=== PATIENT | male | born 1940 | race Caucasian/White ===

== ENCOUNTER 2018-03-30 07:58 | Day surgery (SDC) | payer BC, MEDICARE, OTHER ==
[2018-03-30] VITALS (7 sets, daily range): BP systolic 114–140; BP diastolic 80–90
[~2018-03-30] VITALS: Ht 180.3 cm; Wt 73.0 kg
[~2018-03-30 07:58] MED LIST: ACYC800T PO; ALFU10TA6 PO; ALPR.5T PO; ASP81TEC PO; AVOD0.5CAP PO; BIMA2.5D4 OS; DOXY50CA2 PO; MULT1CAP27 PO; NF-ESOM40C PO; OMEG-12 PO; TROSP20C PO; VITA1CAP59 PO; [UNRECOGNIZED DRUG - OTHER]; iron; osteo matrix
--- OUTSIDE RECORDS SUMMARY | 2018-03-30 08:28 | XMS REPORT | Continuity of Care Document ---
Author Author [facility] Organization [facility] Address Unknown Phone Unavailable Allergies Active Description Code Type Severity Reaction Onset Reported/Identified Relationship to Patient Clinical Status Yes Sulfa (Sulfonamide Antibiotics) [id number] Drug Allergy Unknown N/A 2014 Medications There is no data. Problems Date Dx Coded Attending Type Code Diagnosis Diagnosed By 08/02/2012 Ot 780.4 DIZZINESS AND GIDDINESS 08/02/2012 Ot 785.1 PALPITATIONS 05/23/2014 Ot 216.5 05/23/2014 Ot 216.6 05/23/2014 Ot 780.79 05/23/2014 Ot 789.03 05/23/2014 Ot V10.82 05/23/2014 Ot V67.09 05/23/2014 Ot 573.8 05/23/2014 Ot V10.82 05/23/2014 Ot 518.89 05/23/2014 Ot V10.82 05/23/2014 Ot V58.66 05/23/2014 Ot V58.69 05/23/2014 Ot V67.09 05/23/2014 Ot 719.45 05/23/2014 Ot 268.9 05/23/2014 Ot 285.9 05/23/2014 Ot 600.00 05/23/2014 Ot V10.82 05/23/2014 Ot V58.66 05/23/2014 Ot V58.69 05/23/2014 Ot V67.09 05/23/2014 Ot 368.9 05/23/2014 Ot 437.1 05/23/2014 Ot V10.82 05/23/2014 Ot V58.66 05/23/2014 Ot V58.69 05/23/2014 Ot V67.09 05/23/2014 Ot 397.0 05/23/2014 Ot 424.0 05/23/2014 Ot 780.4 05/23/2014 Ot 785.1 05/23/2014 Ot 780.4 05/23/2014 Ot 785.1 05/23/2014 RONI MOISE, QUINN-GIUSEPPE Ot V10.82 05/23/2014 RONI MOISE, CHEYENNE-GIUSEPPE Ot V58.66 05/23/2014 RONI MOISE, CHEYENNE-GIUSEPPE Ot V58.69 05/23/2014 RONI MOISE, CHEYENNE-GIUSEPPE Ot V67.09 05/23/2014 ROB MOISE, LIA R Ot 715.95 05/23/2014 ROB MOISE, LIA R Ot 715.33 05/23/2014 ROB MOISE, LIA R Ot 721.3 05/23/2014 RONI MOISE, CHEYENNE-GIUSEPPE Ot V10.82 05/23/2014 RONI MOISE, CHEYENNE-GIUSEPPE Ot V58.66 05/23/2014 RONI MOISE, CHEYENNE-GIUSEPPE Ot V58.69 05/23/2014 RONI MOISE, DEEPIKA Ot V67.09 05/23/2014 RONI MOISE, CHEYENNE-GIUSEPPE Ot V10.82 05/23/2014 RONI MOISE, CHEYENNE-GIUSEPPE Ot V67.09 05/26/2014 MK MOISE, GIOVANNI E Ot 724.02 05/26/2014 MK MOISE, GIOVANNI E Ot 724.2 05/26/2014 MK MOISE, GIOVANNI E Ot 724.4 05/26/2014 MK MOISE, GIOVANNI E Ot 728.85 06/01/2014 ROB MOISE, LIA R Ot 715.33 06/01/2014 ROB MOISE, LIA R Ot 721.3 07/13/2014 ROB MOISE, LIA R Ot 715.95 07/21/2014 RONI MOISE, SOLAGIUSEPPE Ot V10.82 HX-MALIG SKIN MELANOMA 07/21/2014 RONI MOISE, CHEYENNEMOODY Ot V67.09 SURGERY FOLLOW-UP, OTHER SURGERY 02/02/2015 ROB MOISE, LIA R Ot 719.40 04/10/2015 GRACIE MOISE, LEONELA Olosn Ot E78.5 04/10/2015 GRACIE MOISE, LEONELA Olson Ot I47.1 04/10/2015 GRACIE MOISE, LEONELA Olson Ot I49.49 04/10/2015 GRACIE MOISE, LEONELA Olson Ot I65.29 05/04/2015 RONI MOISE, SOLAGIUSEPPE Ot V10.82 05/04/2015 RONI MOISE, QUINNMOODY Ot V67.09 05/10/2015 Ot 780.4 05/10/2015 Ot 785.1 05/10/2015 RONI MOISE, DEEPIKA Ot V10.82 05/10/2015 RONI MOISE, DEEPIKA Ot V67.09 06/22/2015 RONI MOISE, DEEPIKA Ot V10.82 06/22/2015 RONI MOISE, DEEPIKA Ot V67.09 06/28/2015 GRACIE MOISE, LEONELA J Ot E78.5 06/28/2015 GRACIE OMISE, LEONELA J Ot I47.1 06/28/2015 GRACIE MOISE, BASHAR J Ot I49.49 06/28/2015 GRACIE MOISE, BASHAR J Ot E78.5 06/28/2015 GRACIE MOISE, BASHAR J Ot I47.1 06/28/2015 GRACIE MOISE, LEONELA J Ot I47.2 07/11/2015 RONI MOISE, DEEPIKA Ot V10.82 07/11/2015 RONI MOSIE, DEEPIKA Ot V67.09 07/11/2015 RONI MOISE, DEEPIKA Ot Z08 07/11/2015 RONI MOISE, DEEPIKA Ot Z85.820 08/08/2015 RONI MOISE, DEEPIKA Ot Z08 ENCNTR FOR FOLLOW-UP EXAM AFTER TRTMT FO 08/08/2015 RONI MOISE, DEEPIKA Ot Z85.820 PERSONAL HISTORY OF MALIGNANT MELANOMA O 01/09/2016 RONI MOISE, DEEPIKA Ot V10.82 HX-MALIG SKIN MELANOMA 01/09/2016 RONI MOISE, DEEPIKA Ot V67.09 SURGERY FOLLOW-UP, OTHER SURGERY 01/09/2016 RONI MOISE, DEEPIKA Ot Z08 ENCNTR FOR FOLLOW-UP EXAM AFTER TRTMT FO 01/09/2016 RONI MOISE, DEEPIKA Ot Z85.820 PERSONAL HISTORY OF MALIGNANT MELANOMA O 02/07/2016 RONI MOISE, DEEPIKA Ot V10.82 HX-MALIG SKIN MELANOMA 02/07/2016 RONI MOISE, DEEPIKA Ot V67.09 SURGERY FOLLOW-UP, OTHER SURGERY 02/07/2016 RONI MOISE, DEEPIKA Ot Z08 ENCNTR FOR FOLLOW-UP EXAM AFTER TRTMT FO 02/07/2016 DEEPIKA TAMAYO MD Ot Z85.820 PERSONAL HISTORY OF MALIGNANT MELANOMA O 02/19/2016 RONI MOISE, DEEPIKA Ot Z08 ENCNTR FOR FOLLOW-UP EXAM AFTER TRTMT FO 02/19/2016 DEEPIKA TAMAYO MD Ot Z85.820 PERSONAL HISTORY OF MALIGNANT MELANOMA O 02/29/2016 DEEPIKA TAMAYO MD Ot Z08 ENCNTR FOR FOLLOW-UP EXAM AFTER TRTMT FO 02/29/2016 DEEPIKA TAMAYO MD Ot Z85.820 PERSONAL HISTORY OF MALIGNANT MELANOMA O 03/14/2016 DEEPIKA TAMAYO MD Ot Z08 ENCNTR FOR FOLLOW-UP EXAM AFTER TRTMT FO 03/14/2016 DEEPIKA TAMAYO MD Ot Z85.820 PERSONAL HISTORY OF MALIGNANT MELANOMA O 04/05/2016 Ot 719.45 JOINT PAIN- PELVIS 04/05/2016 Ot 268.9 VITAMIN D DEFICIENCY NOS 04/05/2016 Ot 285.9 ANEMIA NOS 04/05/2016 Ot 600.00 HYPERTROPHY (BENIGN) OF PROSTATE W/O URI 04/05/2016 Ot V10.82 HX-MALIG SKIN MELANOMA 04/05/2016 Ot V58.66 LONG-TERM ( CURRENT) USE OF ASPIRIN 04/05/2016 Ot V58.69 OTH MED,LT, CURRENT USE 04/05/2016 Ot V67.09 SURGERY FOLLOW-UP, OTHER SURGERY 04/05/2016 Ot 368.9 VISUAL DISTURBANCE NOS 04/05/2016 Ot 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 04/05/2016 Ot V10.82 HX-MALIG SKIN MELANOMA 04/05/2016 Ot V58.66 LONG-TERM ( CURRENT) USE OF ASPIRIN 04/05/2016 Ot V58.69 OTH MED,LT, CURRENT USE 04/05/2016 Ot V67.09 SURGERY FOLLOW-UP, OTHER SURGERY 04/05/2016 Ot 397.0 TRICUSPID VALVE DISEASE 04/05/2016 Ot 424.0 MITRAL VALVE DISORDER 04/05/2016 Ot 780.4 DIZZINESS AND GIDDINESS 04/05/2016 Ot 785.1 PALPITATIONS 04/05/2016 Ot 780.4 DIZZINESS AND GIDDINESS 04/05/2016 Ot 785.1 PALPITATIONS 04/05/2016 DEEPIKA TAMAYO MD Ot V10.82 HX-MALIG SKIN MELANOMA 04/05/2016 DEEPIKA TAMAYO MD Ot V58.66 LONG-TERM (CURRENT) USE OF ASPIRIN 04/05/2016 DEEPIKA TAMAYO MD Ot V58.69 OTH MED,LT,CURRENT USE 04/05/2016 DEEPIKA TAMAYO MD Ot V67.09 SURGERY FOLLOW-UP, OTHER SURGERY 04/05/2016 RBO MOISE, LIA R Ot 715.95 OSTEOARTHROS NOS-PELVIS 04/05/2016 ROB MOISE, LIA R Ot 715.33 LOC OSTEOART NOS-FOREARM 04/05/2016 ROB MOISE, LIA R Ot 721.3 LUMBOSACRAL SPONDYLOSIS 04/05/2016 DEEPIKA TAMAYO MD Ot V10.82 HX-MALIG SKIN MELANOMA 04/05/2016 DEEPIKA TAMAYO MD Ot V58.66 LONG-TERM (CURRENT) USE OF ASPIRIN 04/05/2016 DEEPIKA TAMAYO MD Ot V58.69 OTH MED,LT,CURRENT USE 04/05/2016 DEEPIKA TAMAYO MD Ot V67.09 SURGERY FOLLOW-UP, OTHER SURGERY 04/05/2016 MK MOISE, GIOVANNI E Ot 724.02 SPINAL STENOSIS, LUMBAR REG, W/OUT NEURO 04/05/2016 MK MOISE, GIOVANNI E Ot 724.2 LUMBAGO 04/05/2016 MK MOISE, GIOVANNI E Ot 724.4 LUMBOSACRAL NEURITIS NOS 04/05/2016 MK MOISE, GIOVANNI E Ot 728.85 SPASM OF MUSCLE 04/05/2016 ROB MOISE, LIA R Ot 719.40 JOINT PAIN-UNSPEC 04/05/2016 LEONELA BOWMAN MD Ot E78.5 HYPERLIPIDEMIA, UNSPECIFIED 04/05/2016 LEONELA BOWMAN MD Ot I47.1 SUPRAVENTRICULAR TACHYCARDIA 04/05/2016 LEONELA BOWMAN MD Ot I49.49 OTHER PREMATURE DEPOLARIZATION 04/05/2016 LEONELA BOWMAN MD Ot E78.5 HYPERLIPIDEMIA, UNSPECIFIED 04/05/2016 LEONELA BOWMAN MD Ot I47.1 SUPRAVENTRICULAR TACHYCARDIA 04/05/2016 LEONELA BOWMAN MD Ot I47.2 VENTRICULAR TACHYCARDIA 04/05/2016 DEEPIKA TAMAYO MD, Ot Z08 ENCNTR FOR FOLLOW-UP EXAM AFTER TRTMT FO 04/05/2016 DEEPIKA TAMAYO MD Ot Z85.820 PERSONAL HISTORY OF MALIGNANT MELANOMA O 04/05/2016 ROB MOISE, LIA R Ot 715.95 OSTEOARTHROS NOS-PELVIS 04/05/2016 ROB MOISE, LIA R Ot 715.33 LOC OSTEOART NOS-FOREARM 04/05/2016 ROB MOISE, LIA R Ot 721.3 LUMBOSACRAL SPONDYLOSIS 04/05/2016 DEEPIKA TAMAYO MD Ot V10.82 HX-MALIG SKIN MELANOMA 04/05/2016 DEEPIKA TAMAYO MD Ot V58.66 LONG-TERM (CURRENT) USE OF ASPIRIN 04/05/2016 DEEPIKA TAMAYO MD Ot V58.69 OTH MED,LT,CURRENT USE 04/05/2016 DEEPIKA TAMAYO MD Ot V67.09 SURGERY FOLLOW-UP, OTHER SURGERY 04/05/2016 MK MOISE, GIOVANNI E Ot 724.02 SPINAL STENOSIS, LUMBAR REG, W/OUT NEURO 04/05/2016 MK MOISE, GIOVANNI E Ot 724.2 LUMBAGO 04/05/2016 MK MOISE, GIOVANNI E Ot 724.4 LUMBOSACRAL NEURITIS NOS 04/05/2016 MK MOISE, GIOVANNI E Ot 728.85 SPASM OF MUSCLE 04/05/2016 ROB MOISE, LIA R Ot 719.40 JOINT PAIN-UNSPEC 04/05/2016 LEONELA BOWMAN MD Ot E78.5 HYPERLIPIDEMIA, UNSPECIFIED 04/05/2016 LEONELA BOWMAN MD Ot I47.1 SUPRAVENTRICULAR TACHYCARDIA 04/05/2016 LEONELA BOWMAN MD Ot I49.49 OTHER PREMATURE DEPOLARIZATION 04/05/2016 LEONELA BOWMAN MD Ot E78.5 HYPERLIPIDEMIA, UNSPECIFIED 04/05/2016 LEONELA BOWMAN MD Ot I47.1 SUPRAVENTRICULAR TACHYCARDIA 04/05/2016 LEONELA BOWMAN MD Ot I47.2 VENTRICULAR TACHYCARDIA 04/05/2016 DEEPIKA TAMAYO MD, Ot Z08 ENCNTR FOR FOLLOW-UP EXAM AFTER TRTMT FO 04/05/2016 DEEPIKA TAMAYO MD, Ot Z85.820 PERSONAL HISTORY OF MALIGNANT MELANOMA O 04/08/2016 MK MOISE, GIOVANNI Gill Ot M48.06 SPINAL STENOSIS, LUMBAR REGION 04/08/2016 MK MOISE, GIOVANNI Gill Ot M51.26 OTHER INTERVERTEBRAL DISC DISPLACEMENT, 04/08/2016 Ot 719.45 JOINT PAIN- PELVIS 04/08/2016 Ot 268.9 VITAMIN D DEFICIENCY NOS 04/08/2016 Ot 285.9 ANEMIA NOS 04/08/2016 Ot 600.00 HYPERTROPHY (BENIGN) OF PROSTATE W/O URI 04/08/2016 Ot V10.82 HX-MALIG SKIN MELANOMA 04/08/2016 Ot V58.66 LONG-TERM ( CURRENT) USE OF ASPIRIN 04/08/2016 Ot V58.69 OTH MED,LT, CURRENT USE 04/08/2016 Ot V67.09 SURGERY FOLLOW-UP, OTHER SURGERY 04/08/2016 Ot 368.9 VISUAL DISTURBANCE NOS 04/08/2016 Ot 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 04/08/2016 Ot V10.82 HX-MALIG SKIN MELANOMA 04/08/2016 Ot V58.66 LONG-TERM ( CURRENT) USE OF ASPIRIN 04/08/2016 Ot V58.69 OTH MED,LT, CURRENT USE 04/08/2016 Ot V67.09 SURGERY FOLLOW-UP, OTHER SURGERY 04/08/2016 Ot 397.0 TRICUSPID VALVE DISEASE 04/08/2016 Ot 424.0 MITRAL VALVE DISORDER 04/08/2016 Ot 780.4 DIZZINESS AND GIDDINESS 04/08/2016 Ot 785.1 PALPITATIONS 04/08/2016 Ot 780.4 DIZZINESS AND GIDDINESS 04/08/2016 Ot 785.1 PALPITATIONS 04/08/2016 DEEPIKA TAMAYO MD Ot V10.82 HX-MALIG SKIN MELANOMA 04/08/2016 DEEPIKA TAMAYO MD Ot V58.66 LONG-TERM (CURRENT) USE OF ASPIRIN 04/08/2016 DEEPIKA TAMAYO MD Ot V58.69 OTH MED,LT,CURRENT USE 04/08/2016 DEEPIKA TAMAYO MD Ot V67.09 SURGERY FOLLOW-UP, OTHER SURGERY 04/08/2016 ROB MOISE, LIA R Ot 715.95 OSTEOARTHROS NOS-PELVIS 04/08/2016 ROB MOISE, LIA R Ot 715.33 LOC OSTEOART NOS-FOREARM 04/08/2016 ROB MOISE, LIA R Ot 721.3 LUMBOSACRAL SPONDYLOSIS 04/08/2016 DEEPIKA TAMAYO MD Ot V10.82 HX-MALIG SKIN MELANOMA 04/08/2016 DEEPIKA TAMAYO MD Ot V58.66 LONG-TERM (CURRENT) USE OF ASPIRIN 04/08/2016 DEEPIKA TAMAYO MD, Ot V58.69 OTH MED,LT,CURRENT USE 04/08/2016 DEEPIKA TAMAYO MD Ot V67.09 SURGERY FOLLOW-UP, OTHER SURGERY 04/08/2016 MK MOISE, GIOVANNI Jairo Ot 724.02 SPINAL STENOSIS, LUMBAR REG, W/OUT NEURO 04/08/2016 MK MOISE, GIOVANNI Gill Ot 724.2 LUMBAGO 04/08/2016 MK MOISE, GIOVANNI E Ot 724.4 LUMBOSACRAL NEURITIS NOS 04/08/2016 VICTORINO TERRAZAS MDCA E Ot 728.85 SPASM OF MUSCLE 04/08/2016 ROB MOISE, LIA R Ot 719.40 JOINT PAIN-UNSPEC 04/08/2016 LEONELA BOWMAN MD Ot E78.5 HYPERLIPIDEMIA, UNSPECIFIED 04/08/2016 LEONELA BOWMAN MD J Ot I47.1 SUPRAVENTRICULAR TACHYCARDIA 04/08/2016 LEONELA BOWMAN MD J Ot I49.49 OTHER PREMATURE DEPOLARIZATION 04/08/2016 LEONELA BOWMAN MD Ot E78.5 HYPERLIPIDEMIA, UNSPECIFIED 04/08/2016 LEONELA BOWMAN MD J Ot I47.1 SUPRAVENTRICULAR TACHYCARDIA 04/08/2016 LEONELA BOWMAN MD J Ot I47.2 VENTRICULAR TACHYCARDIA 04/08/2016 RONI MOISE, DEEPIKA Ot Z08 ENCNTR FOR FOLLOW-UP EXAM AFTER TRTMT FO 04/08/2016 DEEPIKA TAMAYO MD Ot Z85.820 PERSONAL HISTORY OF MALIGNANT MELANOMA O 04/08/2016 MK MOISE, GIOVANNI E Ot M48.06 SPINAL STENOSIS, LUMBAR REGION 04/08/2016 VICTORINO TERRAZAS MDCA E Ot M51.26 OTHER INTERVERTEBRAL DISC DISPLACEMENT, 04/08/2016 SEGLIE MD, LIA R Ot 715.95 OSTEOARTHROS NOS-PELVIS 04/08/2016 ROB MOISE, LIA R Ot 715.33 LOC OSTEOART NOS-FOREARM 04/08/2016 ROB MOISE, LIA R Ot 721.3 LUMBOSACRAL SPONDYLOSIS 04/08/2016 DEEPIKA TAMAYO MD Ot V10.82 HX-MALIG SKIN MELANOMA 04/08/2016 DEEPIKA TAMAYO MD Ot V58.66 LONG-TERM (CURRENT) USE OF ASPIRIN 04/08/2016 DEEPIKA TAMAYO MD Ot V58.69 OTH MED,LT,CURRENT USE 04/08/2016 DEEPIKA TAMAYO MD Ot V67.09 SURGERY FOLLOW-UP, OTHER SURGERY 04/08/2016 MK MOISE, GIOVANNI Gill Ot 724.02 SPINAL STENOSIS, LUMBAR REG, W/OUT NEURO 04/08/2016 MK MOISE, GIOVANNI Gill Ot 724.2 LUMBAGO 04/08/2016 MK MOISE, GIOVANNI E Ot 724.4 LUMBOSACRAL NEURITIS NOS 04/08/2016 MK MOISE, GIOVANNI E Ot 728.85 SPASM OF MUSCLE 04/08/2016 ROB MOISE, LIA R Ot 719.40 JOINT PAIN-UNSPEC 04/08/2016 LEONELA BOWMAN MD Ot E78.5 HYPERLIPIDEMIA, UNSPECIFIED 04/08/2016 LEONELA BOWMAN MD Ot I47.1 SUPRAVENTRICULAR TACHYCARDIA 04/08/2016 LEONELA BOWMAN MD Ot I49.49 OTHER PREMATURE DEPOLARIZATION 04/08/2016 LEONELA BOWMAN MD Ot E78.5 HYPERLIPIDEMIA, UNSPECIFIED 04/08/2016 LEONELA BOWMAN MD Ot I47.1 SUPRAVENTRICULAR TACHYCARDIA 04/08/2016 LEONELA BOWMAN MD Ot I47.2 VENTRICULAR TACHYCARDIA 04/08/2016 RONI MOISE, DEEPIKA Ot Z08 ENCNTR FOR FOLLOW-UP EXAM AFTER TRTMT FO 04/08/2016 RONI MOISE, DEEPIKA Ot Z85.820 PERSONAL HISTORY OF MALIGNANT MELANOMA O 04/08/2016 MK MOISE, GIOVANNI E Ot M48.06 SPINAL STENOSIS, LUMBAR REGION 04/08/2016 VICTORINO TERRAZAS MDCA E Ot M51.26 OTHER INTERVERTEBRAL DISC DISPLACEMENT, 04/11/2016 GIOVANNI TERRAZAS MD Ot M48.06 SPINAL STENOSIS, LUMBAR REGION 04/11/2016 GIOVANNI TERRAZAS MD Ot M51.26 OTHER INTERVERTEBRAL DISC DISPLACEMENT, 04/15/2016 DEEPIKA TAMAYO MD Ot Z08 ENCNTR FOR FOLLOW-UP EXAM AFTER TRTMT FO 04/15/2016 DEEPIKA TAMAYO MD Ot Z85.820 PERSONAL HISTORY OF MALIGNANT MELANOMA O 04/17/2016 GIOVANNI TERRAZAS MD Ot M48.06 SPINAL STENOSIS, LUMBAR REGION 04/17/2016 GIOVANNI TERRAZAS MD Ot M51.26 OTHER INTERVERTEBRAL DISC DISPLACEMENT, 04/17/2016 DEEPIKA TAMAYO MD Ot Z08 ENCNTR FOR FOLLOW-UP EXAM AFTER TRTMT FO 04/17/2016 DEEPIKA TAMAYO MD Ot Z85.820 PERSONAL HISTORY OF MALIGNANT MELANOMA O Procedures There is no data. Results There is no data. Encounters ACCT No. Visit Date/Time Discharge Status Pt. Type Provider Facility Loc./Unit Complaint [id number] 04/16/2016 00:09:00 04/16/2016 23:59:59 CLS Preadmit DEEPIKA TAMAYO MD [facility] ONC [id number] 02/27/2016 09:05:00 04/15/2016 00:01:00 DIS Outpatient DEEPIKA TAMAYO MD [facility] ONC [id number] 04/05/2016 15:52:00 04/05/2016 23:59:59 CLS Outpatient GIOVANNI TERRAZAS MD [facility] RAD M51.26,M48.06 [id number] 05/10/2015 13:04:00 05/10/2015 23:59:59 CLS Outpatient DEEPIKA TAMAYO MD [facility] ONC [id number] 05/10/2015 08:02:00 05/10/2015 23:59:59 CLS Outpatient LEONELA BOWMAN MD [facility] CARD PAD,PVC, [id number] 04/06/2015 07:38:00 04/06/2015 23:59:59 CLS Outpatient LEONELA BOWMAN MD [facility] CARD PAT,PVC,HLP,CAROTID STENOSIS [id number] 01/19/2015 09:15:00 01/19/2015 23:59:59 CLS Outpatient LIA RIVAS MD [facility] RAD JOINT PAIN, [id number] 05/24/2014 08:39:00 07/21/2014 00:01:00 DIS Outpatient DEEPIKA TAMAYO MD [facility] ONC [id number] 05/23/2014 11:38:00 05/23/2014 23:59:59 CLS Outpatient MK MOISE, GIOVANNI E [facility] RAD 724.2,724.4,724.02 [id number] 04/20/2014 12:46:00 04/20/2014 23:59:59 CLS Outpatient DEEPIKA TAMAYO MD [facility] ONC LAB [id number] 08/10/2013 12:34:00 08/10/2013 23:59:59 CLS Outpatient LIA RIVAS MD [facility] RAD C4-C5 RADICULOPATHY [id number] 08/04/2013 12:13:00 08/04/2013 23:59:59 CLS Outpatient LIA RIVAS MD [facility] RAD HIP PAIN BILAT [id number] 05/05/2013 13:00:00 05/05/2013 23:59:59 CLS Outpatient DEEPIKA TAMAYO MD [facility] ONC [id number] 03/30/2018 09:15:00 PEN Preadmit LIA RIVAS MD [facility] RAD LOCULATION SYNDROME [id number] 05/23/2014 11:24:00 Document Registration [id number] 08/03/2012 09:00:00 Document Registration [id number] 05/06/2012 09:46:00 Document Registration [id number] 05/04/2012 08:50:00 Document Registration [id number] 03/16/2012 10:52:00 Document Registration [id number] 10/18/2011 12:01:00 Document Registration [id number] 03/18/2011 09:51:00 Document Registration [id number] 03/01/2011 11:57:00 Document Registration [id number] 03/26/2010 10:51:00 Document Registration [id number] 03/20/2009 06:50:00 Document Registration [id number] 03/15/2009 09:55:00 Document Registration
[2018-03-30 08:49] LABS: PROTHROMBIN TIME PATIENT 12.7 SEC (12.2-14.7)
[2018-03-30 08:53] LABS: HEMOGLOBIN 11.4 G/DL (13.3-17.7); MEAN PLATELET VOLUME 10.5 FL (7.4-10.4); RED BLOOD COUNT 3.57 10^6/uL (4.35-5.85); RED CELL DISTRIBUTION WIDTH 13.9 % (10.0-14.5); WHITE BLOOD COUNT 3.6 10^3/uL (4.3-11.0)
[2018-03-30 10:08] LABS: CHOLESTEROL 154 MG/DL (< 200); HDL CHOLESTEROL 59 MG/DL (40-60); TRIGLYCERIDES 47 MG/DL (<150); VLDL CHOLESTEROL 9 MG/DL (5-40)
[2018-03-30] MEDS ORDERED: ACETAMINOPHEN 500 MG TAB (TYLENOL) PO PRN (10:15)
[2018-03-30] MEDS ORDERED: IOHEXOL 300 MG/ML 50 ML (OMNIPAQUE 300) VIAL IV ONE (10:15)
--- NOTE | 2018-03-30 10:54 | Diagnostic Imaging Report ---
PROCEDURE: CT lumbar spine with contrast. TECHNIQUE: Multiple contiguous axial images were obtained through the lumbar spine after the intrathecal administration of contrast. Sagittal and coronal reformations were then performed. INDICATION: Back pain. FINDINGS: The alignment of the lumbar spine is normal. There are postsurgical changes of a posterior instrumentation and fusion from L3-S1 with bilateral pedicle screws and rods. There has also been an anterior fusion at L4-5 and L5-S1. There has been a L3, L4 and L5 laminectomy. The vertebral body heights are well-maintained. No spondylolysis or spondylolisthesis. 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 At L1-2, there is some minimal annular bulging with slight effacement of the ventral thecal sac. There is no significant spinal or neural foraminal encroachment. At L2-3, there is mildly annular bulging, facet disease and thickening of the ligamentum flavum. There is mild central spinal stenosis with moderate right and mild left neural foraminal encroachment. At L3-4, the spinal canal is adequately decompressed. There is no spinal or neural foraminal encroachment. At L4-5, spinal canal is adequately decompressed. There is mild bilateral neural foraminal encroachment. At L5-S1, the spinal canal is adequately decompressed. There is mild bilateral neural foraminal encroachment. Hardware all appears to be intact. There are no significant charlee-screw lucencies. There are no other focal soft tissue abnormalities. IMPRESSION: Stable postsurgical changes in the lumbar spine as detailed above. Otherwise, mild diffuse lumbar spondylosis and degenerative disc disease as detailed above. Dictated by: Dictated on workstation # [id number]
--- NOTE | 2018-03-30 11:28 | Diagnostic Imaging Report ---
Indication: Back pain. Technique and findings: After explaining the risks, benefits and alternatives of the procedure to the patient, written consent was obtained. The patient was placed on the table in the prone position. The patient's back was prepped and draped utilizing maximal sterile barrier technique. Local anesthesia was obtained with 2% lidocaine. Needle was advanced into the thecal sac under fluoroscopic control at L4. 12 cc of Omnipaque 300 was infused. The needle was removed and adequate hemostasis was obtained. There are postsurgical changes of posterior lumbar instrumentation and fusion from L3-S1 with bilateral pedicle screws and rods. There has also been an anterior fusion at L4-5 and L5-S1. There has been an L3, 4 and 5 laminectomy. The alignment of the lumbar spine is normal. Vertebral body heights are well maintained. No spondylolysis or spondylolisthesis. Impression: Stable postsurgical changes of lower lumbar fusion and decompression as described. Please correlate with the post myelography CT findings. Dictated by: Dictated on workstation # [id number]
[2018-03-30] MEDS ORDERED: PRAV10TA PO (12:02)
[2018-03-30] MEDS ORDERED: OMEG-164 PO (12:02)
[2018-03-30] MEDS ORDERED: FERR325T18 PO (12:02)
[2018-03-30] MEDS ORDERED: MULT-166 PO (12:02)
[2018-03-30] MEDS ORDERED: VITA1CAP PO (12:08)
[2018-03-30] MEDS ORDERED: ALPR0.5T7 PO (12:08)
[2018-03-30] MEDS ORDERED: TRAV5DRO OP (12:30)
[2018-03-30] MEDS ORDERED: MAGN400T6 PO (12:30)
[2018-03-30] MEDS ORDERED: TAMS0.4C2 PO (12:30)
[2018-03-30] MEDS ORDERED: PRIM50TA PO ×2 (12:30)
[2018-03-30] MEDS ORDERED: FLUT100D2 IH (12:30)
[2018-03-30] MEDS ORDERED: PANT40TA3 PO (12:30)
[2018-03-30] MEDS ORDERED: MIRA50TA PO (12:30)
[2018-03-30] MEDS ORDERED: PRED1DRO OU (12:30)
[2018-03-30] MEDS ORDERED: BIMA2.5D4 OS (12:30)
[2018-03-30] MEDS ORDERED: ACYC800T PO (12:30)
[2018-03-30] MEDS ORDERED: AZEL137S11 NSEACH (12:30)
[2018-03-30] MEDS ORDERED: FINA5TAB PO (12:30)
[2018-03-30] MEDS ORDERED: RANI150T90 PO (12:30)
== END 2018-03-30 13:30 | disposition home or self-care (01) ==
LOC: RAD 07:58
PROVIDERS: ATTEND Family Medicine
DX: M48.061 Spinal stenosis, lumbar region without neurogenic claudication (principal); M99.73 Connective tissue and disc stenosis of intervertebral foramina of lumbar region; M51.26 Other intervertebral disc displacement, lumbar region; M47.816 Spondylosis without myelopathy or radiculopathy, lumbar region; Z98.890 Other specified postprocedural states; Z98.1 Arthrodesis status; G95.89 Other specified diseases of spinal cord
CPT/HCPCS: 36415; 62284; 72132; 72265; 77002; 80061; 85027; 85610; 85730

== ENCOUNTER 2018-06-05 12:28 | Outpatient (CLI) | payer BC, MEDICARE, OTHER ==
[~2018-06-05] VITALS: Ht 180.3 cm; Wt 72.1 kg
[~2018-06-05 12:28] MED LIST changes: +ALPR0.5T7 PO; +AZEL137S11 NSEACH; +FERR325T18 PO; +FINA5TAB PO; +FLUT100D2 IH; +MAGN400T6 PO; +MIRA50TA PO; +MULT-166 PO; +OMEG-164 PO; +PANT40TA3 PO; +PRAV10TA PO; +PRED1DRO OU; +PRIM50TA PO; +RANI150T90 PO; +TAMS0.4C2 PO; +TRAV5DRO OP; +VITA1CAP PO
[2018-06-05 12:36] VITALS: BP 123/82
[2018-06-05] MEDS ORDERED: FLUT15.88 NS (13:22)
[2018-06-05] MEDS ORDERED: GABA-531 PO (13:22)
[2018-06-05] MEDS ORDERED: PRED5DRO24 OU (13:22)
[2018-06-08] MEDS ORDERED: POLY17PO6 PO (12:31)
[2018-06-08] MEDS ORDERED: DOCU100C37 PO (15:41)
[2018-06-08] MEDS ORDERED: HYDR-3812 PO (15:41)
[2018-06-09] MEDS ORDERED: ONDN4T PO (18:11)
== END 2018-06-05 13:10 | disposition home or self-care (01) ==
LOC: PREOP 12:28
PROVIDERS: ATTEND Surgery
DX: Z01.818 Encounter for other preprocedural examination (principal)
CPT/HCPCS: 87081